=== PATIENT | female | born 1980 | race Caucasian/White ===

== ENCOUNTER → 2018-08-02 | Outpatient (CLI) | payer OTHER ==
--- NOTE | 2018-08-04 23:10 | ECHO ---
DATE OF PROCEDURE: 08/02/2018 DATE OF : 1980 AGE: 38 REFERRING PROVIDER: Candace Grider REASON FOR THE ECHOCARDIOGRAM: Chest pain, unspecified. PATIENT LOCATION: Outpatient. 2D MEASUREMENTS: IVS: 0.8 cm LV: 4.4 cm LVPW: 0.9 cm LA: 3.1 cm Aorta: 3.0 cm DOPPLER MEASUREMENTS: Peak velocity across the aortic valve: 1.4 m/s Peak velocity across the LVOT: 1.1 m/s Mitral E: 0.92, Mitral A: 0.55 with a ratio of 1.7 Maximum tricuspid valve velocity: 2.1 m/s 2D COMMENTS: 1. Normal left ventricular size, wall thickness, and normal global left ventricular systolic function. The estimated left ventricular systolic ejection fraction is 60-65%. 2. Normal left atrium. Normal right atrium and right ventricle. 3. The atrial septum appeared to be normal without evidence of defect or shunt. 4. Normal aortic root. 5. Trace pericardial effusion noted. No evidence of cardiac tamponade. 6. The aortic valve, mitral valve, tricuspid valve, and pulmonic valve appeared to be normal. The proximal pulmonary artery branches also appeared to be normal. 7. The inferior vena cava was not well visualized. DOPPLER: It detects trace mitral regurgitation, trace aortic regurgitation, trace pulmonic regurgitation, and trace tricuspid regurgitation. The calculated pulmonary artery systolic pressure was normal. Assessment of the left ventricular diastolic function also was normal. IMPRESSION: 1. Normal global left ventricular systolic and diastolic function. 2. Trace aortic regurgitation. 3. Trace mitral regurgitation. 4. Trace tricuspid regurgitation with a normal calculated pulmonary artery systolic pressure. 5. Trace pericardial effusion noted, no evidence of cardiac tamponade.
== END ==
LOC: M CARPUL 09:59
PROVIDERS: ATTEND Physician Assistant Medical
DX: I08.3 Combined rheumatic disorders of mitral, aortic and tricuspid valves (principal); I31.3 Pericardial effusion (noninflammatory)

== ENCOUNTER → 2020-01-30 | Outpatient (CLI) | payer OTHER ==
--- NOTE | 2020-01-30 11:43 | REP ---
INDICATION: PELVIC PAIN COMPARISON: 07/01/2015 TECHNIQUE: Transabdominal pelvic ultrasound followed by transvaginal examination for better evaluation of the endometrium and adnexa with color Doppler evaluation of the ovaries. FINDINGS: Bladder is unremarkable and measures 5.9 x 5.4 x 3.8 cm. Normal heterogeneous anteverted uterus measures 9.3 x 4.1 x 5.6 cm. The endometrial complex measures 10.3 mm thickness. Few nabothian cysts noted measuring up to 14 mm. No further uterine abnormalities are identified. Bilateral ovaries are normal in appearance and vascularity without evidence for torsion. Right ovary measures 3.4 x 2.1 x 4.6 cm with 2.7 cm simple physiologic cyst; R I = 0.72. Left ovary measures 3.2 x 2.3 x 1.6 cm with 1.7 cm physiologic cyst/follicle; R I = 0.62. No pelvic fluid or adnexal mass lesion. IMPRESSION: 1. Multiple nabothian cysts measuring up to 14 mm. 2. Bilateral simple appearing cysts as noted above likely physiologic. 3. No pelvic free fluid or significant adnexal abnormality otherwise noted. <Electronically signed by Arya Rowe > 01/30/20 [id number]
== END ==
LOC: M RAD 10:23
PROVIDERS: ATTEND Obstetrics & Gynecology
DX: N88.8 Other specified noninflammatory disorders of cervix uteri (principal); R10.2 Pelvic and perineal pain

== ENCOUNTER → 2020-12-17 | Outpatient (CLI) | payer OTHER ==
--- NOTE | 2020-12-17 12:59 | REP ---
INDICATION: LEFT BREAST PAIN. COMPARISON: Multiple. No prior DBT images for review. TECHNIQUE: And diagnostic digital bilateral mammography was obtained in the CC and MLO projections using both 2D and 3D modalities along with spot compression views of the left breast upper outer quadrant where the patient complains of focal pain. Diagnostic ultrasonography this region was also obtained. FINDINGS: The breasts are unchanged in size and shape. Once again, dense heterogenous fibroglandular elements are seen bilaterally in a stable appearing pattern. There are no laz soft tissue densities or spiculated masses. There is no internal architectural distortion. There are no suspicious microcalcifications. There is no skin thickening or nipple retraction. Diagnostic magnified spot compression views of the left breast over the region of interest shows no abnormalities. Diagnostic ultrasonography left breast over the region of interest shows no cystic or solid masses. The Volpara volumetric breast density pattern is b. IMPRESSION: BIRADS/ACR category 2 benign findings. There is no evidence of malignant alteration of either breast. A negative mammogram and a negative ultrasound examination should never curtail biopsy of a clinically palpable mass or clinically suspicious area the breast. Consider breast MRI if clinically relevant.. This patient's Tyrer-Cuzick lifetime breast cancer risk assessment score is 10.8%. This mammogram was interpreted with the aid of an FDA-approved computer-aided detection system. The patient states she had a clinical breast exam in over a year. The patient letter being requested is M2. RECOMMENDATION: Repeat screening mammography recommended 1 year (for women over 40). With potential additional recommendation as described above. <Electronically signed by Go Sheffield > 12/17/20 [id number]
== END ==
LOC: M WHC 09:31
PROVIDERS: ATTEND Nurse Practitioner Family
DX: N64.4 Mastodynia (principal)
CPT/HCPCS: 76642; 77066; G0279

== ENCOUNTER → 2021-03-17 | Outpatient (CLI) | payer OTHER ==
--- NOTE | 2021-03-17 09:32 | PFTRPT ---
Site: [facility], [address] [place] [address], [id number] ID: [id number] Name: BELTRAN PANG Visit Date: 03/17/2021 Second ID: [id number] Referring Doctor: Masha Raphael Reviewing Doctor: Ector Dallas MD [employer] Work[employer] [facility]: [facility] Age: 40 : 1980 Sex: Female Race: Height: 67.00 Inches Weight: 162.00 Lbs BSA: 1.85 Order IDs: [id number] Requested Test(s): <RESP-PFT.PFT B/A> Diagnosis: R06.02 test meet the ATS standards for acceptability and repeatability. Pt was given four puffs of albuterol for post bronchodilator. The results of this test appear to be valid, although the ATS standard for "end of test" was not met. Review Status: Not Reviewed Pre-Bronch Post-Bronch Pred Actual %Pred Actual %Chng SPIROMETRY FVC (L) 4.07 4.90 120 5.03 2 FEV1 (L) 3.31 3.66 110 3.88 5 FEV1/FVC (%) 82 75 91 77 3 FEF 25% (L/sec) 5.78 6.15 106 6.69 8 FEF 50% (L/sec) 4.21 3.66 86 4.30 17 FEF 75% (L/sec) 1.67 1.13 67 1.63 44 FEF 25-75% (L/sec) 3.31 2.87 86 3.60 25 FEF Max (L/sec) 7.44 6.99 93 7.61 8 FIVC (L) 4.89 5.07 3 FIF 50% (L/sec) 3.96 8.10 204 7.57 -6 FIF Max (L/sec) 8.14 7.75 -4 MVV (L/min) 109 151 138 Expiratory Time (sec) 7.25 7.06 -2 Back Extrap Vol (L) 0.13 0.15 15 Time To FEFmax (sec) 0.115 0.091 -20 LUNG VOLUMES SVC (L) 3.77 5.12 135 IC (L) 2.43 4.08 167 ERV (L) 1.34 1.04 77 TGV (L) 3.07 4.07 132 RV (Pleth) (L) 1.73 3.03 175 TLC (Pleth) (L) 5.50 8.15 148 RV/TLC (Pleth) (%) 31 37 119 DIFFUSION DLCOunc (ml/min/mmHg) 25.08 21.80 86 DLCOcor (ml/min/mmHg) 25.08 22.07 88 DL/VA (ml/min/mmHg/L) 4.56 3.35 73 VA (L) 5.50 6.58 119 BHT (sec) 9.68 IVC (L) 4.95 TLC (SB) (L) 6.73 AIRWAYS RESISTANCE Raw (cmH2O/L/s) 1.86 0.71 38 Gaw (L/s/cmH2O) 1.03 1.41 137 sRaw (cmH2O*s) 4.76 2.76 58 sGaw (1/cmH2O*s) 0.20 0.36 181 BLOOD GASES Hgb (gm/dL) 13.0
--- NOTE | 2021-03-17 13:58 | REP ---
INDICATION: SOB PT HAS PFT FIRST THEN XRAY COMPARISON: None. TECHNIQUE: PA and lateral. FINDINGS: The mediastinum and cardiac silhouette are normal. The lung chapa are clear and without acute consolidation, effusion, or pneumothorax. The skeletal structures are intact and normal. IMPRESSION: No acute cardiopulmonary process. <Electronically signed by Arya Rowe > 03/17/21 [id number]
== END ==
LOC: M CARPUL 08:46
PROVIDERS: ATTEND Nurse Practitioner Adult Health
DX: R06.02 Shortness of breath (principal)

== ENCOUNTER → 2021-03-24 | Outpatient (CLI) | payer OTHER ==
[~2021-03-24] MED LIST: METHACHOLINE KIT (J7674) INH ONE
== END ==
LOC: M CARPUL 08:34
PROVIDERS: ATTEND Nurse Practitioner Adult Health
DX: R06.02 Shortness of breath (principal)
CPT/HCPCS: 94070; 95070; J7674